=== PATIENT | male | born 1985 | race Two or more races ===

== ENCOUNTER 2022-11-18 14:33 | Emergency (ER) | payer SELFPAY ==
[~2022-11-18] VITALS: Ht 165.1 cm; Wt 72.0 kg
[2022-11-18] MEDS ORDERED: KETOROLAC TROMETH 60MG/2ML VIAL IM ONE (15:00)
[2022-11-18] MEDS ORDERED: DOCU-94 PO ×3 (15:40→15:42)
[2022-11-18] MEDS ORDERED: HYDR-4902 PO ×3 (15:40→15:42)
[2022-11-18] MEDS ORDERED: AMOX-277 PO ×3 (15:40→15:42)
[2022-11-18] MEDS ORDERED: IBUP800T26 PO ×3 (15:40→15:42)
[2022-11-18 16:17] VITALS: BP 140/94
== END 2022-11-18 16:35 | disposition home or self-care (01) ==
LOC: ER 14:33
DX: K61.1 Rectal abscess (principal)
CPT/HCPCS: 72192; 96372; 99285; J1885

== ENCOUNTER 2023-10-13 14:58 | Emergency (ER) | payer MEDICAID ==
[~2023-10-13] VITALS: Ht 165.1 cm; Wt 69.7 kg
[~2023-10-13 14:58] MED LIST: AMOX875T4 PO; DOCU-94 PO; HYDR-4902 PO; IBUP-1455 PO
[2023-10-13 16:32] VITALS: BP 143/93; PULSE 78; RESP 16; TEMP 98.4; O2SAT 98
[2023-10-13] MEDS ORDERED: METH-1182 PO (17:49)
[2023-10-13] MEDS ORDERED: IBUP-1454 PO (17:49)
== END 2023-10-13 17:56 | disposition home or self-care (01) ==
LOC: ER 14:58
DX: S16.1XXA Strain of muscle, fascia and tendon at neck level, initial encounter (principal); S39.012A Strain of muscle, fascia and tendon of lower back, initial encounter; V49.9XXA Car occupant (driver) (passenger) injured in unspecified traffic accident, initial encounter; Y93.89 Activity, other specified; Y92.488 Other paved roadways as the place of occurrence of the external cause; Y99.8 Other external cause status
CPT/HCPCS: 72040; 72100